=== PATIENT | female | born 1995 | race Caucasian/White ===

== ENCOUNTER 2021-06-13 04:52 | Emergency (ER) | payer MEDICAID ==
[~2021-06-13] VITALS: Ht 162.6 cm; Wt 120.7 kg
[2021-06-13 04:59] VITALS: BP_SYST 126
--- NOTE | 2021-06-13 04:59 | NUR ---
Patient to ER bed 5 to gown for evaluation. Side rails up.
--- NOTE | 2021-06-13 05:14 | NUR ---
ER Dr. TORRES at bedside examining patient.
--- NOTE | 2021-06-13 05:15 | NUR ---
PATIENT AAOX4 AND AMBULATORY FROM HOME C/O ABDOMINAL EPIGASTRIC PAIN THAT STARTED AT MIDNIGHT. DENIES ANY N/V/D. CURRENTLY STATING 01/02 ON THE PAIN. STATED IT MIGHT BE RELATED TO D&C YESTERDAY. VSS.
--- NOTE | 2021-06-13 05:15 | NUR ---
URINE HCG POSTIVE. D&C DONE YESTERDAY. DENIES ANY BLEEDING, N/V.
[2021-06-13] MEDS ORDERED: KETOROLAC TROMETHAMINE 15 MG VIAL IVP ONE (05:30)
[2021-06-13] MEDS ORDERED: FAMOTIDINE 20 MG TABLET PO ONE (05:30)
[2021-06-13 05:59] LABS: BILIRUBIN,URINE NEGATIVE (NEGATIVE); CLARITY/URINE CLEAR (CLEAR); COLOR,URINE YELLOW (YELLOW); GLUCOSE,URINE NEGATIVE (NEGATIVE); KETONES,URINE NEGATIVE (NEGATIVE); LEUKOCYTE ESTERASE ,URINE NEGATIVE (NEGATIVE); NITRITE, URINE NEGATIVE (NEGATIVE); PROTEIN URINE NEGATIVE (NEGATIVE); UROBILINOGEN,URINE 0.2 (0.2-1.0)
[2021-06-13 06:06] LABS: BLOOD, URINE TRACE (NEGATIVE)
[2021-06-13 06:10] LABS: CALCIUM 8.7 mg/dL (8.4-11.0); CREATININE 0.73 mg/dL (0.55-1.30)
[2021-06-13 06:14] LABS: BASOPHILS % (AUTO) 0.6 % (0.0-2.0); EOSINOPHILS # (AUTO) 0.2 K/uL (0.0-0.4); EOSINOPHILS % (AUTO) 2.5 % (0.0-4.0); HEMATOCRIT 34.7 % (36-48); HEMOGLOBIN 11.5 g/dL (12.0-16.0); LYMPHOCYTES # (AUTO) 1.4 K/uL (1.0-5.5); LYMPHOCYTES % (AUTO) 21.3 % (20.5-51.5); MEAN CORPUSCULAR HEMOGLOBIN 25 pg (27-31); MEAN CORPUSCULAR HGB CONC 33 % (32-36); MEAN CORPUSCULAR VOLUME 77 fL (79.0-98.0); MONOCYTES # (AUTO) 0.3 K/uL (0.0-1.0); MONOCYTES % (AUTO) 4.3 % (1.7-9.3); NEUTROPHILS # (AUTO) 4.8 K/uL (1.8-7.7); NEUTROPHILS % (AUTO) 71.3 % (40.0-70.0); PLATELET COUNT (AUTO) 219 K/uL (130-430); RED BLOOD CELL COUNT(AUTO) 4.53 MIL/uL (4.2-6.2); RED CELL DISTRIBUTION WIDTH 15.9 % (9.0-15.0); WHITE BLOOD COUNT (AUTO) 6.8 K/uL (4.8-10.8)
[2021-06-13 06:16] LABS: ALBUMIN 3.4 g/dL (3.4-4.8); TOTAL BILIRUBIN 0.3 mg/dL (0.0-1.0)
[2021-06-13 06:19] LABS: BACTERIA,URINE RARE /HPF (None Seen); WBC,URINE 0-3 /HPF (0-3)
[2021-06-13 06:29] VITALS: BP_SYST 126
--- NOTE | 2021-06-13 06:30 | NUR ---
Patient given written and verbal discharge instructions and verbalizes understanding. DR. MELISSA MCNEILL MD discussed with patient the results and treatment provided. Patient in stable condition. ID arm band removed. IV catheter removed intact and dressing applied, no active bleeding. Patient educated on pain management and to follow up with PMD. Pain Scale 0/10. Opportunity for questions provided and answered. Medication side effect fact sheet provided.
== END 2021-06-13 06:30 | disposition home or self-care (01) ==
LOC: SED 04:52
DX: R10.11 Right upper quadrant pain (principal); Z87.59 Personal history of other complications of pregnancy, childbirth and the puerperium
CPT/HCPCS: 36415; 80053; 81000; 81025; 83690; 85025; 96374; 99283; J1885